=== PATIENT | female | born 1950 | race Caucasian/White ===

== ENCOUNTER 2017-08-28 09:42 | Outpatient (CLI) | payer OTHER ==
[~2017-08-28 09:42] MED LIST: AVAPRO75 MG; BENZOCAINE; CRESTOR20 MG; FOSAMAX70 MG; GLYCOPYRROLATE2 MG; RESTORIL15 M1; SOTALOL80 MG; SYNTHROID137 MCG; SYNTHROID300 MCG; TRICOR145 MG; XANAX XR2 MG; ZIAC 2.5-6.25 M1 TAB; ZOCOR20 MG; ZOCOR5 MG
== END 2017-08-28 09:53 | disposition home or self-care (01) ==
LOC: SONOGRAMA 09:42 → MAMO-SONO 10:15
DX: E05.00 Thyrotoxicosis with diffuse goiter without thyrotoxic crisis or storm (principal); E04.2 Nontoxic multinodular goiter; E03.8 Other specified hypothyroidism

== ENCOUNTER 2017-08-28 11:00 | Outpatient (CLI) | payer OTHER | END 2017-08-28 11:13 | disposition home or self-care (01) | LOC: LAB 11:00 | DX: E05.00 Thyrotoxicosis with diffuse goiter without thyrotoxic crisis or storm (principal) ==